=== PATIENT | female | born 2000 | race Caucasian/White ===

== ENCOUNTER 2019-06-14 14:05 | Emergency (ER) | payer SELFPAY ==
[~2019-06-14] VITALS: Ht 162.6 cm; Wt 99.8 kg
[2019-06-14 14:24] VITALS: BP 129/84
--- NOTE | 2019-06-14 15:05 | NUR ---
PT BIB SELF C/O LEFT EAR DRAINAGE FOR 5 DAYS. GREEN FLUID NOTED TO BE DRAINING FROM EAR CANAL. PT ALSO STATES DECREASED HEARING FROM LEFT EAR. PT AWAKE AND SITTING IN BED.
[2019-06-14 16:00] VITALS: BP 147/93
--- NOTE | 2019-06-14 16:01 | NUR ---
Patient discharged with v/s stable. Written and verbal after care instructions given and explained. Patient alert, oriented and verbalized understanding of instructions. Ambulatory with steady gait. All questions addressed prior to discharge. ID band removed. Patient advised to follow up with PMD. Rx of CIPRODEX,NAPROSYN given. Patient educated on indication of medication including possible reaction and side effects. Opportunity to ask questions provided and answered.
== END 2019-06-14 16:01 | disposition home or self-care (01) ==
LOC: MED 14:05
DX: H60.92 Unspecified otitis externa, left ear (principal)
CPT/HCPCS: 99283